=== PATIENT | female | born 1985 | race Caucasian/White ===

== ENCOUNTER 2022-10-13 16:49 | Emergency (ER) | payer OTHER ==
[2022-10-13 17:13] VITALS: BMI 23.3
[2022-10-13 17:39] VITALS: BP 101/66; PULSE 88; RESP 16; TEMP 98
== END 2022-10-13 18:00 | disposition home or self-care (01) ==
LOC: JERFT 16:49
DX: O26.892 Other specified pregnancy related conditions, second trimester (principal); R10.9 Unspecified abdominal pain; Z3A.17 17 weeks gestation of pregnancy
CPT/HCPCS: 99282-25